=== PATIENT | female | born 1985 | race African-American/Black ===

== ENCOUNTER 2016-12-26 08:14 | Emergency (ER) | payer MEDICAID | END 2016-12-26 09:27 | disposition home or self-care (01) | LOC: D.ER 08:14 | DX: F41.9 Anxiety disorder, unspecified (principal) ==

== ENCOUNTER 2018-07-26 08:00 | Outpatient (CLI) | payer MEDICAID | END 2018-07-26 09:00 | disposition home or self-care (01) | LOC: D.MAMMO 08:00 | DX: Z12.31 Encounter for screening mammogram for malignant neoplasm of breast (principal) ==

== ENCOUNTER 2019-05-14 10:58 | Emergency (ER) | payer SELFPAY ==
[~2019-05-14] VITALS: Ht 165.1 cm; Wt 102.3 kg
[2019-05-14 11:01] VITALS: Ht 165.1 cm; Wt 102.3 kg
[2019-05-14 12:16] LABS: APPEARANCE HAZY (CLEAR); BACTERIA MODERATE /hpf (NONE SEEN); BILIRUBIN NEGATIVE (NEGATIVE); COLOR YELLOW (YELLOW); EPITHELIAL CELLS 0-5 /hpf (0-5); GLUCOSE NEGATIVE (NEGATIVE); KETONE NEGATIVE (NEGATIVE); MUCUS <1+ /lpf (NONE SEEN); NITRITE POSITIVE (NEGATIVE); PROTEIN TRACE mg/dL (NEGATIVE); RED CELLS - URINE 0-5 /hpf (0-5); UROBILINOGEN NORMAL (NORMAL); WHITE CELLS - URINE 0-5 /hpf (0-5)
[2019-05-14 12:25] LABS: HEMATOCRIT 35.2 % (36.0-48.0); HEMOGLOBIN 11.6 g/dL (12-16); MCH 25.2 pg (26.0-34.0); MCV 76.5 fL (80.0-100.0); MEAN PLATELET VOLUME 9.4 fL (7.4-10.4); RDW 14.2 % (11.5-14.5); WBC 8.2 10x3/uL (4.8-10.8)
[2019-05-14 12:26] LABS: PLATELET COUNT 192 10x3/uL (130-400)
[2019-05-14 12:31] LABS: ALBUMIN 2.8 g/dL (3.4-5.0); ALKALINE PHOSPHATASE 79 U/L (46-116); ALT (SGPT) 57 U/L (10-68); CALC OSMOLALITY 275 mosm/kg (275-300); CALCIUM 7.9 mg/dL (8.5-10.1); CARBON DIOXIDE 28.5 mmol/L (21.0-32.0); CHLORIDE - SERUM 105 mmol/L (98-107); CREATININE - SERUM 0.8 mg/dL (0.6-1.3); GLUCOSE 87 mg/dL (74-106); POTASSIUM - SERUM 3.8 mmol/L (3.5-5.1); SODIUM 140 mmol/L (136-145); UREA NITROGEN 6 mg/dL (7-18); eGFR NON AFRICAN AMERICAN 86 mL/min (90-120)
[2019-05-14 12:40] LABS: THYROID STIMULATING HORMONE 1.13 uIU/mL (0.36-3.74)
[2019-05-14] MEDS ORDERED: MACROBID100 MG PO (12:57)
[2019-05-14 13:10] LABS: BASOPHILS 1 % (0-2); LYMPHOCYTES 44 % (15-50); MONOCYTES 21 % (2-11); NEUTROPHILS 27 % (40-80); PLATELET ESTIMATE NORMAL
[2019-05-14 13:34] VITALS: BP 129/75
[2019-05-16 19:08] LABS: CHLAMYDIA TRACHOMATIS, NAA Negative (Negative)
== END 2019-05-14 13:35 | disposition home or self-care (01) ==
LOC: D.ER 10:58
PROVIDERS: Family Medicine
DX: A59.9 Trichomoniasis, unspecified (principal); M79.18 Myalgia, other site; R51 Headache